=== PATIENT | female | born 1955 | race Two or more races ===

== ENCOUNTER 2017-10-29 07:23 | Outpatient (CLI) | payer OTHER | END 2017-10-29 12:19 | disposition home or self-care (01) | LOC: SONOGRAMA 07:23 | DX: R10.84 Generalized abdominal pain (principal) ==

== ENCOUNTER 2018-05-07 12:06 | Outpatient (CLI) | payer OTHER | END 2018-05-07 12:49 | disposition home or self-care (01) | LOC: RAD 12:06 | DX: M54.5 Low back pain (principal) ==

== ENCOUNTER 2022-12-16 11:37 | Outpatient (CLI) | payer OTHER | END 2022-12-16 11:49 | disposition home or self-care (01) | LOC: RAD 11:37 | PROVIDERS: ATTEND Internal Medicine Rheumatology | DX: M19.041 Primary osteoarthritis, right hand (principal); M19.042 Primary osteoarthritis, left hand ==

== ENCOUNTER 2022-12-24 10:49 | Outpatient (CLI) | payer OTHER | END 2022-12-24 10:52 | disposition home or self-care (01) | LOC: NUCLEAR 10:49 | PROVIDERS: ATTEND Internal Medicine Rheumatology | DX: M81.0 Age-related osteoporosis without current pathological fracture (principal) ==

== ENCOUNTER 2023-05-13 12:22 | Outpatient (CLI) | payer OTHER | END 2023-05-13 12:33 | disposition home or self-care (01) | LOC: RAD 12:22 | PROVIDERS: ATTEND Orthopaedic Surgery | DX: M79.671 Pain in right foot (principal); M79.672 Pain in left foot ==

== ENCOUNTER 2023-06-24 12:17 | Emergency (ER) | payer OTHER ==
[~2023-06-24] VITALS: Ht 167.6 cm; Wt 72.1 kg
[2023-06-24 16:21] LABS: HEMATOCRIT 40.9 % (36.0-45.00); HEMOGLOBIN 13.7 g/dL (12.0-15.00); MEAN CELL VOLUME 88.1 fL (80.00-100.00); MEAN CORPUSCULAR HEMOGLOBIN 29.5 pg (27.00-32.0); MEAN CORPUSCULAR HGB CONC 33.5 g/dl (32.0-36.0); PLATELET COUNT 329 K/uL (150-450); RED BLOOD COUNT 4.64 M/uL (4.00-6.00); RED CELL DISTRIBUTION WIDTH 14.4 % (11.5-14.5)
[2023-06-24 16:29] LABS: PH,URINE 6.5 (5.0-8.0); URINE APPEARANCE Cloudy; URINE BACTERIA 303.6 uL (0.0-1933); URINE BILIRRUBIN Negative (NEGATIVE); URINE BLOOD Negative; URINE COLOR Yellow; URINE EPITHELIAL CELLS 8.7 uL (0.0-38.8); URINE GLUCOSE Negative (NEGATIVE); URINE LEUKOCYTE Negative; URINE NITRATE Negative; URINE PROTEIN Negative (NEGATIVE); URINE RBC 17.2 uL (0.0-20.8); URINE UROBILINOGEN 0.2 E.U./dl; URINE WBC 3.2 uL (0.0-23.2)
[2023-06-24 16:44] LABS: CALCIUM 9.7 mg/dL (8.5-10.1); CREATININE SERUM 0.69 mg/dL (0.55-1.02); GFR 84.86; POTASSIUM 3.9 mEq/L (3.5-5.1)
== END 2023-06-24 17:52 | disposition home or self-care (01) ==
LOC: ER 12:17
PROVIDERS: General Practice
DX: R10.31 Right lower quadrant pain (principal); J45.909 Unspecified asthma, uncomplicated; Z91.041 Radiographic dye allergy status; Z91.040 Latex allergy status; N83.201 Unspecified ovarian cyst, right side

== ENCOUNTER 2025-08-03 13:48 | Outpatient (CLI) | payer OTHER | END 2025-08-03 13:51 | disposition home or self-care (01) | LOC: RAD 13:48 | PROVIDERS: ATTEND Orthopaedic Surgery | DX: M79.671 Pain in right foot (principal) ==

== ENCOUNTER → 2025-08-21 | Outpatient (CLI) | payer OTHER | END | disposition home or self-care (01) | LOC: RAD 13:15 | PROVIDERS: ATTEND Obstetrics & Gynecology | DX: N39.46 Mixed incontinence (principal); R35.0 Frequency of micturition; N95.2 Postmenopausal atrophic vaginitis; N81.10 Cystocele, unspecified; R35.1 Nocturia; N81.6 Rectocele; Z01.818 Encounter for other preprocedural examination ==

== ENCOUNTER 2025-08-30 07:19 | Outpatient (CLI) | payer OTHER | END 2025-08-30 07:22 | disposition home or self-care (01) | LOC: SONOGRAMA 07:19 | PROVIDERS: ATTEND Family Medicine | DX: R94.5 Abnormal results of liver function studies (principal) ==